=== PATIENT | male | born 1985 | race Caucasian/White ===

== ENCOUNTER 2022-02-16 18:12 | Emergency (ER) | payer MEDICAID ==
[~2022-02-16] VITALS: Ht 162.6 cm; Wt 89.8 kg
--- NOTE | 2022-02-16 18:26 | NUR ---
TO ER BED 2,EKG,MONITOR,READY FOR MD ESCUDERO
[2022-02-16] MEDS ORDERED: ASPIRIN 325 MG TABLET ONE (18:56)
[2022-02-16] MEDS ORDERED: ASPIRIN 325 MG TABLET PO ONE (19:00)
[2022-02-16 19:13] LABS: CALCIUM, SERUM 9.1 mg/dL (8.5-10.1); CARBON DIOXIDE 25 mmol/L (21-32); CHLORIDE 101 mmol/L (98-107); CREATININE 0.8 mg/dL (0.6-1.3); GLUCOSE 105 mg/dL (74-106); POTASSIUM 3.9 mmol/L (3.5-5.1); SODIUM SERUM 138 mmol/L (136-145); UREA NITROGEN, BLOOD 7 mg/dL (7-18)
--- NOTE | 2022-02-16 19:51 | NUR ---
CHEST HEAVINESS AND SOB X 3 DAYS. PT AWAKE AND ALERT X4 BREATHING EVEN AND UNLABORED. PLACED ON MONITOR AND V/S WNL.
[2022-02-16 20:11] LABS: BASOPHILS % (AUTO) 0.1 % (0.0-2.0); EOSINOPHILS % (AUTO) 0.4 % (0.0-6.0); HEMATOCRIT 43 % (39-51); HEMOGLOBIN 14.7 g/dL (13.5-17.5); LYMPHOCYTES % (AUTO) 16.5 % (20.0-44.0); MEAN CORPUSCULAR HGB CONC 34 g/dl (31.0-36.0); MEAN CORPUSCULAR VOLUME 84 fL (80-96); MONOCYTES # (AUTO) 1.1 K/uL (0.1-1.30); NEUTROPHILS # (AUTO) 8.8 K/uL (1.8-8.9); PLATELET COUNT (AUTO) 308 K/uL (150-450); RED BLOOD CELL COUNT(AUTO) 5.11 MIL/uL (4.5-6.0); WHITE BLOOD COUNT (AUTO) 11.9 K/uL (4.3-11.0)
[2022-02-16] MEDS ORDERED: IOHEXOL-350 100 ML VIAL IV ONE (20:37)
[2022-02-16] MEDS ORDERED: CT SWABBABLE VALVE TRANS SET 1 EA INFUS.SET MC ONE (20:37)
[2022-02-16] MEDS ORDERED: IV NS 0.9% 250 ML IV ONE (20:37)
[2022-02-16] MEDS ORDERED: ONDANSETRON HCL/PF 4 MG/2 ML VIAL IVP ONE (22:00)
[2022-02-16] MEDS ORDERED: MAG HYDROX/AL HYDROX/SIMETH 30 ML UDC PO ONE (22:00)
[2022-02-16] MEDS ORDERED: FAMOTIDINE/PF INJ 20 MG/2 ML VIAL IV ONE ×2 (22:00→22:04)
[2022-02-16] MEDS ORDERED: MAG HYDROX/AL HYDROX/SIMETH 30 ML UDC ONE (22:04)
[2022-02-16] MEDS ORDERED: ONDANSETRON HCL/PF 4 MG/2 ML VIAL ONE (22:04)
[2022-02-16] MEDS ORDERED: FAMO20TA8 PO (22:17)
[2022-02-16] MEDS ORDERED: MAG355OR21 PO (22:17)
--- NOTE | 2022-02-16 22:25 | NUR ---
Patient discharged to home in stable condition. Written and verbal after care instructions given. Patient verbalizes understanding of instruction. IV removed. Catheter intact and site benign. Pressure and 4x4 applied to site. No bleeding noted.
[2022-02-16 22:48] VITALS: BP 154/74
== END 2022-02-16 22:25 | disposition home or self-care (01) ==
LOC: ER 18:19
DX: K20.90 Esophagitis, unspecified without bleeding (principal); R07.89 Other chest pain; Z79.899 Other long term (current) drug therapy
CPT/HCPCS: 36415; 71045; 71275; 80048; 84484 ×2; 85025; 85378; 93005 ×3; 96374; 99285; J3490; J7050; Q9967; J2405

== ENCOUNTER 2022-07-18 21:37 | Emergency (ER) | payer MEDICAID ==
[~2022-07-18] VITALS: Ht 165.1 cm; Wt 90.7 kg
[~2022-07-18 21:37] MED LIST: FAMO20TA8 PO; MAG355OR21 PO
[2022-07-18 22:17] VITALS: BP 141/68
--- NOTE | 2022-07-18 22:36 | NUR ---
Patient discharged to home in stable condition. Written and verbal after care instructions given. Patient verbalizes understanding of instruction.
== END 2022-07-18 22:38 | disposition home or self-care (01) ==
LOC: ER 21:51
DX: B07.9 Viral wart, unspecified (principal)